=== PATIENT | male | born 1985 | race Caucasian/White ===

== ENCOUNTER → 2018-08-13 14:19 | Outpatient (CLI) | payer BC, SELFPAY ==
[2018-08-13 15:52] LABS: Anion Gap 10 (5-15); BUN 16 mg/dL (7-18); BUN/Creat Ratio 15.2 RATIO (10-20); Calcium,Total 9.9 mg/dL (8.5-10.1); Chloride 101 mmol/L (98-107); Cholesterol 224 mg/dL (200); Creatinine, Serum 1.05 mg/dL (0.70-1.30); EST Glomerular Filtration Rate 86 mL/min (>60); Est Glom Filt Rate - Afr Amer 104 mL/min (>60); Glucose 86 mg/dL (74-106); High Density Lipoprotein 52 mg/dL; Potassium 4.1 mmol/L (3.5-5.1); Sodium Level 139 mmol/L (136-145); Triglycerides 106 mg/dL; Very Low Density Lipoprotein 21 mg/dL (5-40)
--- OUTSIDE RECORDS SUMMARY | 2018-10-08 13:52 | XMS RPT_ITS ---
:1985 Author Organization OHIP Care Team Providers Name Role Phone Adair Givens Attending Unavailable Adair Givens Primary Care Unavailable PROBLEMS PROBLEMS DATE TYPE CONDITION / CODE ATTENDING STATUS SOURCE 08/13/2018 Unknown I10 - Essential Adair Givens Active Sim (primary) Community hypertension / Hospital I10(ICD-10) Repository PROCEDURES PROCEDURES No Procedure Records FoundRESULTS RESULTS BASIC METABOLIC Collected: 08/13/2018 Status: F Source: SIM PROFILE (BMP) 2:24 PM [facility] REPOSITORY TYPE CODE TESTS RESULT OUT OF RANGE REFERENCE UNITS LAB L501.0100 74-106 mg/dL Normal GLU 86 Result Comment: Please note revised GLUCOSE reference range effective 2017. LAB L501.1000 7-18 mg/dL Normal BUN 16 LAB L501.1100 0.70-1.30 mg/dL Normal CREAT,SERUM 1.05 Result Comment: The validity of the calculated GFR AND GFRAA in patients over 70 years has not been determined. Clinical correlation is essential. LAB L501.1110 >60 mL/min Normal EST GFR 86 Result Comment: Non- GFR Calc LAB L501.1115 >60 mL/min Normal EST GFR - AA 104 Result Comment: GFR Calc LAB L501.1300 10-20 RATIO Normal BUN/CRE 15.2 LAB L501.2200 8.5-10.1 mg/dL CA Normal 9.9 LAB L501.5300 136-145 mmol/L NA Normal 139 LAB L501.5600 3.5-5.1 mmol/L K Normal 4.1 LAB L501.5900 98-107 mmol/L CL Normal 101 LAB L501.6100 21.0-32.0 mmol/L Normal CO2 28.0 LAB L501.6200 5-15 Normal GAP 10 Performed By: #### L500.2500, L500.4100 #### [facility] [address] [place], [address] LIPID PROFILE Collected: 08/13/2018 Status: F Source: [place] 2:24 PM [facility] REPOSITORY TYPE CODE TESTS RESULT OUT OF RANGE REFERENCE UNITS LAB L501.4900 200 mg/dL High CHOL 224 Result Comment: <200 mg/dL Desirable 200-240 mg/dL Borderline >240 mg/dL High Risk LAB L501.5000 mg/dL Normal TRIG 106 Result Comment: The drugs N-Acetylcysteine and Metamizole may falsely depress this assay. Serum Triglycerides Reference Interval Normal <150 mg/dL Borderline high 150 - 199 mg/dL High 200 - 499 mg/dL Very High > or = 500 mg/dL LAB L501.6400 mg/dL Normal HDL 52 Result Comment: The drugs N-Acetylcysteine and Metamizole may falsely depress this assay. Reference Range HDL <40 mg/dL Low HDL Cholesterol HDL >or= 60 mg/dL High HDL Cholesterol LAB L501.6500 0-130 mg/dL High LDL 151 LAB L501.6600 5-40 mg/dL Normal VLDL 21 Performed By: #### L500.2500, L500.4100 #### [facility] [address] [place], [address] ALLERGIES ALLERGIES DATE TYPE / CODE NAME / CODE REACTION SEVERITY SOURCE 12/30/2013 Drug No Known Unknown [facility] Allergy/4160 Allergies/F00 [facility] [address]120(SNOMED [id number](RXNOR Repository CT) M) ENCOUNTERS ENCOUNTERS ADMIT/DISCHARGE ACCOUNT ADMITTING ENCOUNTER LOCATION SOURCE NUMBER CLASS 08/13/2018 [id number] Ambulatory [address] ing:MFPLAB Repository PAYERS PAYERS ENCOUNTER GUARANTOR PAYER SUBSCRIBER SOURCE 08/13/2018 VIRGINIAIRINA VALENZUELA Primary [place]IR[place] VALENZUELA [place] [id number] Insurance:ANTHEMPolic PAINTERDOB: Community [address] [place]: [id number] [id number] Repository [id number]: 330) Date:6526-08-75[phone] () [id number] [id number]: 08/13/2018 Secondary NOT GIVENUNK Sim Insurance:SELF PAY [facility]: Effective Repository Date:2018-08-13
== END ==
PROVIDERS: Family Provider Family Medicine; PCP Family Medicine; Visit Provider Family Medicine
DX: I10 Essential (primary) hypertension (principal)
CPT/HCPCS: 36415; 80048; 80061

== ENCOUNTER → 2019-02-18 16:02 | Outpatient (CLI) | payer BC, SELFPAY ==
[2013-12-30 10:23] VITALS: BMI 23.0
[2019-02-18 17:48] LABS: ALB/GLOB Ratio 1.3 RATIO (0.9-2.4); AST(SGOT) 26 U/L (15-37); Alanine Aminotransfer ALT/SGPT 85 U/L (16-61); Albumin, Serum 4.3 g/dL (3.2-5.0); Alkaline Phosphatase 78 U/L (45-117); Anion Gap 11 (5-15); BUN 13 mg/dL (7-18); BUN/Creat Ratio 14.7 RATIO (10-20); Calcium,Total 9.9 mg/dL (8.5-10.1); Chloride 102 mmol/L (98-107); Cholesterol 179 mg/dL (200); Creatinine, Serum 0.89 mg/dL (0.70-1.30); EST Glomerular Filtration Rate 104 mL/min (>60); Est Glom Filt Rate - Afr Amer 126 mL/min (>60); Globulin 3.4 g/dL (2.2-4.2); Glucose 74 mg/dL (74-106); High Density Lipoprotein 46 mg/dL; Potassium 4.1 mmol/L (3.5-5.1); Protein, Total 7.7 g/dL (6.4-8.2); Sodium Level 141 mmol/L (136-145); Triglycerides 117 mg/dL; Very Low Density Lipoprotein 23 mg/dL (5-40)
== END ==
PROVIDERS: Family Provider Family Medicine; PCP Family Medicine; Referring Provider Family Medicine; Visit Provider Family Medicine
DX: I10 Essential (primary) hypertension (principal)
CPT/HCPCS: 36415; 80053; 80061

== ENCOUNTER → 2019-08-15 09:03 | Outpatient (CLI) | payer BC, SELFPAY ==
[2013-12-30 10:23] VITALS: BMI 23.0
[2019-08-15 10:19] LABS: Anion Gap 5 (5-15); BUN 18 mg/dL (7-18); BUN/Creat Ratio 19.7 RATIO (10-20); Calcium,Total 9.5 mg/dL (8.5-10.1); Chloride 105 mmol/L (98-107); Creatinine, Serum 0.91 mg/dL (0.70-1.30); EST Glomerular Filtration Rate 100 mL/min (>60); Est Glom Filt Rate - Afr Amer 121 mL/min (>60); Glucose 92 mg/dL (74-106); Potassium 4.1 mmol/L (3.5-5.1); Sodium Level 139 mmol/L (136-145)
== END ==
PROVIDERS: Family Provider Family Medicine; PCP Family Medicine; Referring Provider Family Medicine; Visit Provider Family Medicine
DX: I10 Essential (primary) hypertension (principal)
CPT/HCPCS: 36415; 80048

== ENCOUNTER → 2021-05-30 10:04 | Outpatient (CLI) | payer OTHER, SELFPAY ==
[2021-05-30 12:48] LABS: Cholesterol 137 mg/dL (200); High Density Lipoprotein 49 mg/dL; Thyroid Stim Hormone (TSH) 0.72 uIU/mL (0.358-3.74); Triglycerides 53 mg/dL; Very Low Density Lipoprotein 11 mg/dL (5-40)
[2021-05-31 13:59] LABS: Anion Gap 5 (5-15); BUN 27 mg/dL (7-18); BUN/Creat Ratio 29.7 RATIO (10-20); Calcium,Total 9.4 mg/dL (8.5-10.1); Chloride 105 mmol/L (98-107); Creatinine, Serum 0.91 mg/dL (0.70-1.30); EST Glomerular Filtration Rate 100 mL/min (>60); Est Glom Filt Rate - Afr Amer 121 mL/min (>60); Glucose 88 mg/dL (74-106); Potassium 4.6 mmol/L (3.5-5.1); Sodium Level 139 mmol/L (136-145)
== END ==
PROVIDERS: PCP Family Medicine; Referring Provider Family Medicine; Visit Provider Family Medicine
DX: Z00.00 Encounter for general adult medical examination without abnormal findings (principal)
CPT/HCPCS: 36415; 80048; 80061; 84403; 84443

== ENCOUNTER → 2023-03-09 | Outpatient (CLI) | payer BC, SELFPAY ==
[2023-03-09 18:47] LABS: Anion Gap 8 (5-15); BUN 14 mg/dL (7-18); BUN/Creat Ratio 15.4 RATIO (10-20); Calcium,Total 9.7 mg/dL (8.5-10.1); Chloride 102 mmol/L (98-107); Cholesterol 194 mg/dL (200); Creatinine, Serum 0.91 mg/dL (0.70-1.30); EST Glomerular Filtration Rate 99 mL/min (>60); Est Glom Filt Rate - Afr Amer 119 mL/min (>60); Glucose 84 mg/dL (74-106); High Density Lipoprotein 52 mg/dL; Sodium Level 137 mmol/L (136-145); Thyroid Stim Hormone (TSH) 1.13 uIU/mL (0.358-3.74); Triglycerides 164 mg/dL; Very Low Density Lipoprotein 33 mg/dL (5-40)
== END | disposition home or self-care (01) ==
PROVIDERS: PCP Family Medicine; Visit Provider Family Medicine
DX: Z00.00 Encounter for general adult medical examination without abnormal findings (principal)
CPT/HCPCS: 36415; 80048; 80061; 84403; 84443

== ENCOUNTER → 2023-08-13 | Outpatient (CLI) | payer BC, SELFPAY ==
--- NOTE | 2023-08-13 11:10 | RAD_ITS ---
STUDY: X-RAY - LUMBAR SPINE REASON FOR EXAM: Male, 38 years old. BACK PAIN TECHNIQUE: 4 view(s) of the lumbar spine were obtained. COMPARISON: None FINDINGS: Normal lumbar lordosis. There is no substantial scoliosis. There is a normal alignment of the vertebrae. Normal vertebral bodies and endplates. Normal disc space heights. The soft tissue structures are unremarkable. RAD/L/S Spine Min 4 Views IMPRESSION: Normal x-ray examination of the lumbar spine. Electronically Signed: Sanchez Matamoros MD at 19:27 EST ,
== END | disposition home or self-care (01) ==
PROVIDERS: PCP Family Medicine; Referring Provider Family Medicine; Visit Provider Family Medicine
DX: E29.1 Testicular hypofunction (principal); M54.9 Dorsalgia, unspecified
CPT/HCPCS: 36415; 72110; 84403

== ENCOUNTER 2023-11-26 20:23 | Emergency (ER) | payer BC, SELFPAY ==
[2023-11-26 20:24] VITALS: BP 137/74; PULSE 94; RESP 18; TEMP 37.4; O2SAT 96; BMI 20.2
--- NOTE | 2023-11-26 20:29 | EX.ED.DYSGE1 ---
HPI History of Present Illness Chief Complaint: General Illness [facility] Medical History (Updated 11/26/23 @ 21:[address] Castillo Fenton, ) Anxiety Hypertension Home Medications No Known/Unobtainable [No Known Home Medications] 12/30/13 [History Last Taken Unknown] ondansetron 4 mg disintegrating tablet 4 mg PO Q8H PRN PRN Nausea #10 tabs 11/26/23 [Rx Last Taken Unknown] Allergy/AdvReac Type Severity Reaction Status Date / Time No Known Allergies Allergy Verified 11/26/23 20:24 Social History Smoking Status: Never smoker EXAM Physical Exam Const Vital Signs: 11/26/23 20:24 11/26/23 20:52 11/26/23 21:46 Temperature 99.4 F H 99.3 F H Temperature Source Temporal Oral Pulse Rate 94 86 Respiratory Rate 18 18 15 Blood Pressure 137/74 H 119/78 114/60 Blood Pressure Mean 95 91 78 Pulse Ox 96 Oxygen Delivery Method Room Air MDM MDM MDM Narrative Medical decision making narrative: HISTORY OF PRESENT ILLNESS: 38-year-old male presents with concerns for flu A. States he has been having nausea, body aches, nausea and cough. States he was given Tamiflu by his primary doctor after he started vomiting. Denies any chest pain or shortness of breath. REVIEW OF SYSTEMS: Pertinent positives: Body aches, nausea, Pertinent negatives: Chest pain, shortness breath, leg swelling PHYSICAL EXAM: Nursing triage notes reviewed, Vital signs reviewed Constitutional: please see mdm HENT: MMM Eyes: Pupils equal round and reactive to light, Extraocular muscles intact Neck: No stridor, no JVD, full neck ROM Lungs: Clear to auscultation, No wheezing or rales. No increased work of breathing, no conversational dyspnea, no accessory muscle use, no nasal flaring. No respiratory distress noted Heart: Regular rate and rhythm, No murmurs, No rubs and No gallops, 2+ distal pulses (radial, femoral, posterior tibial) in all extremities Abdomen: Soft, there is no tenderness, rigidity, rebound or guarding, no obvious peritoneal signs, no palpable pulsatile abdominal masses, no auscultated abdominal bruit : No CVAT Extremities: No edema Neuro: No focal neurological deficits, cranial nerves II through XII intact, 5/5 strength in all extremities. Intact sensation to light touch in all extremities, 2+ reflexes bilateral patella tendons. Normal gait. No ataxia. Skin: No rash or lesions noted MEDICAL DECISION MAKING: Chief Complaint: Influenza A External records reviewed: No recent advanced imaging of the chest History obtained from others: Patient's MDM Narrative: Patient was hemodynamically stable, afebrile and nontoxic-appearing. Heart and lungs were clear. Patient not hypoxic. He was borderline febrile. He was given symptomatic treatment with IV fluids, Zofran and Toradol. He was able to tolerate p.o. he is appropriate discharge home with strict return precaution follow-up instructions. The patient and/or family, caregivers express understanding. The patient and/or family, caregivers agrees with the plan. Shared decision making: I will have a discussion with the patient and or visitors regarding risk/benefits of further testing or admission. They will be made aware of of the risk/benefits inherent in this decision they will be given the opportunity to voice understanding. Total critical care time today provided was at least 0 minutes. This excludes separately billable procedures. Critical care time (if documented) is secondary to the patient having high probability of clinically significant/life threatening deterioration in the patient's condition which required my urgent intervention. Impression: 1. Influenza A Dispo: Discharge home This note was generated with [employer] dictation software. It may contain incorrect words, spelling, and punctuation that were not noted in review of the chart prior to signing. Discharge Plan Triage Chief Complaint: General Illness ED Provider: Castillo Fenton Dx/Rx/DC Orders Clinical Impression: Influenza A Prescriptions: New ondansetron 4 mg tablet,disintegrating 4 mg PO Q8H PRN PRN (Reason: Nausea) Qty: 10 0RF No Action No Known Home Medications Primary Care Provider: Adair Givens Referrals: Adair Givens MD [Primary Care Provider] - Activity Restrictions/Additional Instructions: Thank you for trusting us with your care today! Please take Tylenol (2 pills, 650 mg), ibuprofen (2 pills, 400 mg) every 6 hours as needed for pain and fever control. Please take Zofran as needed for nausea or vomiting. Please discontinue taking Tamiflu if it causes significant nausea and vomiting. Please return to the emergency department if your symptoms change or worsen. Please follow with your primary care physician for further outpatient evaluation and management. Disposition Disposition: Home, Self Care
[2023-11-26 20:52] VITALS: BP 119/78; RESP 18
[2023-11-26] MEDS: 0.9% Normal Saline (1000mL) 1,000 ML 1000 ML IV (21:11)
[2023-11-26] MEDS: Ketorolac 15 MG/ML Vial IV (21:11)
[2023-11-26] MEDS: Ondansetron 4 MG/2 ML Vial IV (21:11)
[2023-11-26] MEDS: Acetaminophen 325 MG Tablet 650 MG PO (21:44)
[2023-11-26 21:46] VITALS: BP 114/60; PULSE 86; RESP 15; TEMP 37.4
[2023-11-26 22:33] VITALS: BP 104/65; PULSE 77; RESP 17; TEMP 37.2; O2SAT 98
== END 2023-11-26 22:35 | disposition home or self-care (01) ==
PROVIDERS: Emergency Provider Emergency Medicine; PCP Family Medicine; Visit Provider Emergency Medicine
DX: J10.1 Influenza due to other identified influenza virus with other respiratory manifestations (principal)
CPT/HCPCS: 96361; 96374; 96375; 99283; J7030; A4216; J2405

== ENCOUNTER → 2023-11-26 | Outpatient (CLI) | payer BC, SELFPAY ==
[2023-11-26 17:44] LABS: Absolute Lymphocyte Count 0.52 X10^3/uL (0.83-4.51); Absolute Neutrophil Count 5.6 X10^3/uL (2.0-7.7); Basophil# 0.02 X10^3/uL; Basophil% 0.3 % (0-1); Eosinophil# 0.01 X10^3/uL; Eosinophils% 0.1 % (0-5); Hemoglobin 14.7 g/dL (13.0-16.5); Lymphocyte # 0.52 X10^3/ul (0.83-4.51); Lymphocyte % 7.7 % (19-41); Mean Corp Hgb Conc 32.7 g/dL (32-36); Mean Corpuscular Hgb 28.9 pg (27.0-32.0); Mean Corpuscular Volume 88.4 fL (80-94); Mean Platelet Vol. 10.2 fl (6.2-12.0); Monocyte# 0.58 X10^3/uL; Monocyte% 8.6 % (0-10); NRBC Flagged by Analyzer 0 % (0-5); Neutrophil # 5.61 X10^3/uL (2.7-7.7); Neutrophil % 82.9 % (47-70); POSITIVE DIFFERENTIAL YES; Platelet Count 281 K/mm3 (150-450); RBC Distribution Width CV 13.1 % (11.6-14.6); RBC Distribution Width SD 42.5 fl (35.1-43.9); Red Blood Count 5.09 M/mm3 (4.6-6.2); White Blood Count 6.8 K/mm3 (4.4-11.0)
[2023-11-26 18:16] LABS: Anion Gap 6 (5-15); BUN 11 mg/dL (7-18); BUN/Creat Ratio 12.1 RATIO (10-20); Calcium,Total 9.4 mg/dL (8.5-10.1); Chloride 104 mmol/L (98-107); Creatinine, Serum 0.91 mg/dL (0.70-1.30); EST Glomerular Filtration Rate 98 mL/min (>60); Est Glom Filt Rate - Afr Amer 119 mL/min (>60); Glucose 92 mg/dL (74-106); Potassium 4.2 mmol/L (3.5-5.1); Sodium Level 138 mmol/L (136-145)
== END | disposition home or self-care (01) ==
LOC: MFPLAB 16:37
PROVIDERS: PCP Family Medicine; Visit Provider Family Medicine
DX: R42 Dizziness and giddiness (principal)
CPT/HCPCS: 36415; 80048; 85025

== ENCOUNTER 2024-02-13 02:51 | Emergency (ER) | payer BC, SELFPAY ==
[2024-02-13 02:52] VITALS: BP 134/92; PULSE 100; RESP 16; TEMP 36.2; O2SAT 98; BMI 22.6
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
[2024-02-13] MEDS: morphine 10 MG/ML Syringe IM (03:47)
[2024-02-13 04:48] VITALS: RESP 16; TEMP 37; O2SAT 98
== END 2024-02-13 04:51 | disposition home or self-care (01) ==
LOC: ED 04:15
PROVIDERS: Emergency Provider Emergency Medicine; PCP Family Medicine; Visit Provider Emergency Medicine
DX: S42.022A Displaced fracture of shaft of left clavicle, initial encounter for closed fracture (principal); V29.888A Rider (driver) (passenger) of other motorcycle injured in other specified transport accidents, initial encounter; Y93.55 Activity, bike riding; Y99.8 Other external cause status; Y92.89 Other specified places as the place of occurrence of the external cause; I10 Essential (primary) hypertension; F17.220 Nicotine dependence, chewing tobacco, uncomplicated; Z79.899 Other long term (current) drug therapy
CPT/HCPCS: 73000; 73030; 96372; 99283

== ENCOUNTER 2024-02-25 05:45 | Day surgery (SDC) | payer BC, SELFPAY ==
[2024-02-25] VITALS (9 sets, daily range): BP systolic 131–147; BP diastolic 67–99; PULSE 69–78; RESP 16; TEMP 36.2–36.8; O2SAT 96–100; BMI 20.9
[2024-02-25] MEDS: Lactated Ringers 1,000 ML 15 ML IV (06:15)
[2024-02-25] MEDS: Cefazolin 2 GM in 0.9% Normal Saline (100mL Bag) 100 ML IV (07:35)
--- NOTE | 2024-02-25 07:46 | PCM.PRE.AN2 ---
ASA Classification* ASA Classification ASA Classification: 2 Assessment & Plan Anesthesia* Anesthesia Assessment Anesthesia Assessment: Discussed sedation and/or anesthesia options, risks, benefits, and alternatives with patient/parents/legal guardian/POA. Questions invited. The patient/parents/legal guardian/POA seems to understand and agrees to proceed with anesthesia plan. Reviewed the physical assessment, medical history, allergy history and patient home medications list prior to surgery/procedure/anesthetic and documented any changes. Performed airway and anesthesia risk assessments. Anesthesia Type Anesthesia Type: General Pre-Assessment Diagnosis/Proposed Procedure Planned Operative Procedure(s): ORIF LEFT CLAVICLE FX Anesthesia History Anesthesia History - inflatable buildings laminator: Anesthesia History - inflatable buildings laminator Hx Hospitalization No 02/19/24 08:09 Any Problems With Anesthesia No 02/19/24 08:09 Cholinesterase deficiency No 02/19/24 08:09 You/Your Family Experience No 02/19/24 08:09 fever (hyperthermia) with Relationship Recent Exposure to Contagious No 02/25/24 06:29 Disease Does patient have nerve No 02/19/24 08:09 stimulator Patient instructed to have device shut off --Does patient have Pacemaker No 02/25/24 06:29 or ICD? When Was Last Pacemaker Check QUESTION #4 FULL TEXT: You/Your Family Experience fever (hyperthermia) with Anesthesia Last Oral Intake Last Oral intake: Last Oral Intake NPO since 19:45 02/25/24 06:29 Meds taken in AM with sips of No 02/25/24 06:29 water? Meds patient instructed to take am of surgery PONV PONV - inflatable buildings laminator: PONV - inflatable buildings laminator Female No 02/19/24 08:09 HX of Motion Sickness No 02/19/24 08:09 HX of N/V After Surgery No 02/19/24 08:09 Non-Smoker No 02/19/24 08:09 Duration of Surgery greater Yes 02/19/24 08:09 than 60 minutes Number of Risk Factors 1 02/19/24 08:09 PONV Score Low Risk 02/19/24 08:09 Height & Weight Height & Weight: Anesthesia: Height & Weight Height 5 ft 11 in 02/25/24 06:29 Weight: 68 kg 02/25/24 06:29 Body Mass Index (BMI) 20.9 02/25/24 06:29 Respiratory Assessment Respiratory Assessment - inflatable buildings laminator: Respiratory Tract Infection Hx - inflatable buildings laminator Hx Respiratory Tract Infection No 02/19/24 08:09 STOP Sleep Apnea STOP Sleep Apnea - inflatable buildings laminator: STOP Sleep Apnea - inflatable buildings laminator Hx Hypertension Yes: CONTROLLED WITH MED 02/19/24 08:09 Hx Sleep Apnea No 02/19/24 08:09 CPAP BIPAP Do you snore loudly (louder Yes 02/19/24 08:09 than talking or can be heard Do you often feel tired/ No 02/19/24 08:09 fatigued/ sleepy during daytime? Has anyone observed you stop No 02/19/24 08:09 breathing during sleep? STOP Results Positive 02/19/24 08:09 QUESTION #5 FULL TEXT : Do you snore loudly (louder than talking or can be heard through closed doors)? Tobacco Use History Tobacco Use History - inflatable buildings laminator: Tobacco Use History - inflatable buildings laminator Tobacco Use Smoking Status Current every day smoker 02/19/24 08:09 Hx Tobacco Use Yes 02/19/24 08:09 Years Smoking Packs Smoked per Day Smoking Cessation Date was within the last 15 years Hx Smoking Cessation Date Hx Smoking Cessation Yes 02/19/24 08:09 Counseling Hematologic Medial History Hematologic Hx - inflatable buildings laminator: Hematologic Medical Hx - research project coordinator Hx of Blood Transfusion No 02/19/24 08:09 Hx of Transfusion in last 3 No 02/19/24 08:09 Months Date of Last Transfusion (if within last 3 months) Ever experience any problems No 02/19/24 08:09 with transfusion(s)? Specify any problems Hx of Preganancy in last 3 N/A 02/19/24 08:09 Months Nurse Filling Out Transfusion DSCHRIBER 02/19/24 08:09 & Questions: Date: 02/19/24 02/19/24 08:09 Time: 08:10 02/19/24 08:09 Patient unable to answer at this time (ie. confused, unrespo /Reproduction History /Reproductive History - inflatable buildings laminator: /Reproductive Hx- inflatable buildings laminator Hx Now No 02/19/24 08:09 Gestational Age (in weeks): EDC: Hx Hx Para Hx Section SAB No 02/19/24 08:09 Active Medications Active Medications: Current Medications Generic Name Dose Route Start Last Admin Trade Name Freq PRN Reason Stop Dose Admin Cefazolin Sodium 2 gm/ Sodium 110 mls @ 150 mls/hr 02/25/24 07:30 Chloride IV 02/25/24 08:13 PREOP ONE Lactated Ringer's 1,000 mls @ 15 mls/hr 02/25/24 06:15 02/25/24 06:15 IV 15 mls/hr .Q48H SUSAN Administration Anesthesia Focused Assessment* Temperature: 98.2 F Pulse Rate: 73 Blood Pressure: 131/67 Respiratory Rate: 16 Pulse Ox: 100 Airway Assessment Mouth opens (cm): 3 Mallampati Score: II Focused Labs Anesthesia Preop lab: CBC WBC 6.8 K/mm3 (4.4-11.0) 11/26/23 16:37 RBC 5.09 M/mm3 (4.6-6.2) 11/26/23 16:37 Hgb 14.7 g/dL (13.0-16.5) 11/26/23 16:37 Hct 45.0 % (40-54) 11/26/23 16:37 Plt Count 281 K/mm3 (150-450) 11/26/23 16:37 CHEMISTRY Potassium 4.2 mmol/L (3.5-5.1) 11/26/23 16:37 Sodium 138 mmol/L (136-145) 11/26/23 16:37 BUN 11 mg/dL (7-18) 11/26/23 16:37 Creatinine 0.91 mg/dL (0.70-1.30) 11/26/23 16:37 Glucose 92 mg/dL (74-106) 11/26/23 16:37 TSH 1.13 uIU/mL (0.358-3.74) 03/09/23 14:34 COAG Review of Systems (Anesthesia) ROS Narrative System reviewed and no additional complaints, except as documented. [facility] Medical History Wears glasses Marijuana use Alcohol use Back pain Syncope Chewing tobacco dependence History of hand fracture Hypertension Anxiety Home Medications ?Medication ?Instructions ?Recorded ?Last Taken ?Type lisinopril 10 1 tab PO QHS 02/13/24 02/24/24 18:45 History mg-hydrochlorothiazide 12.5 mg tablet oxycodone-acetaminophen 5 mg-325 1 tab PO Q6H PRN pain 3 days #12 02/13/24 02/24/24 19:45 Rx mg tablet (Percocet) tabs sertraline 50 mg tablet 50 mg PO QHS 02/13/24 02/24/24 18:45 History Allergy/AdvReac Type Severity Reaction Status Date / Time No Known Allergies Allergy Verified 02/25/24 06:27 Surgical History Hx of tonsillectomy History of hand surgery Social History Smoking Status: Current every day smoker tobacco type: smokeless tobacco
[2024-02-25] MEDS: Lidocaine 1% /Epi 1:100 (50ml) 50 ML VIAL (08:07)
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
--- NOTE | 2024-02-25 09:38 | PCM.POST.ANE ---
Anesthesia: Postop Eval I Current Vital Signs Temperature: 97.3 F Pulse Rate: 77 Blood Pressure: 146/83 Respiratory Rate: 16 Pulse Ox: 96 Oxygen Delivery Method: Room Air Assessment Airway patent: Yes Spontaneous unlabored respirations: Yes Mental status: Awake and Calm nausea: No Vomiting: No Anesthesia Complication: No Fluid Hydration Crystalloid volume administer (ml): 1,100 Total IV fluid infused: 1,100 Progress Note Post-operative progress note: Patent airway, no complaints of discomofrot, transported to PACU. Anesthesia document: Postop Eval 1 completed: Yes
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
[2024-02-25] MEDS: Ketorolac 30 MG/ML Syringe IV (09:59)
--- NOTE | 2024-02-25 10:38 | POSTOPAN2_ITS ---
Anesthesia Postop Eval I Sum Postop Eval Completion status Anesthesia document: Postop Eval 1 completed: Yes Anesthesia Postop Eval I Summary Anesthesia Postop Eval I Summary: Anesthesia Postop Eval I: Assessment Summary Airway patent Yes 02/25/24 09:45 [email or web address] Spontaneous unlabored Yes 02/25/24 09:45 [email or web address] respirations Mental status Awake,Calm 02/25/24 09:45 [email or web address] nausea No 02/25/24 09:45 [email or web address] Vomiting No 02/25/24 09:45 [email or web address] Anesthesia Postop Eval I: Fluid Summary Crystalloid volume administer 1,100 02/25/24 09:45 [email or web address] (ml) Colloids volume administered ( ml) Blood Product volume administered (ml) Total IV fluid infused 1,100 02/25/24 09:45 [email or web address] Anesthesia Postop Eval I: Summary Notes Anesthesia Complication No 02/25/24 09:45 [email or web address] Anesthesia Complication Comment: Post-operative progress note Patent airway, no 02/25/24 09:45 [email or web address] complaints of discomofrot, transported to PACU. Anesthesia: Postop Eval II Evaluation Mental status: Awake Pain Level: 0 nausea: No Vomiting: No Complications Anesthesia Complication: No
--- NOTE | 2024-02-25 10:38 | PCM.POSTANE2 ---
Anesthesia Postop Eval I Sum Postop Eval Completion status Anesthesia document: Postop Eval 1 completed: Yes Anesthesia Postop Eval I Summary Anesthesia Postop Eval I Summary: Anesthesia Postop Eval I: Assessment Summary Airway patent Yes 02/25/24 09:45 BOAT DIESEL [email or web address] [email or web address] Spontaneous unlabored Yes 02/25/24 09:45 BOAT DIESEL MOTOR [email or web address] respirations Mental status Awake,Calm 02/25/24 09:45 BOAT DIESEL [email or web address] [email or web address] nausea No 02/25/24 09:45 BOAT DIESEL MOTOR [email or web address] Vomiting No 02/25/24 09:45 BOAT DIESEL [email or web address] [email or web address] Anesthesia Postop Eval I: Fluid Summary Crystalloid volume administer 1,100 02/25/24 09:45 BOAT DIESEL [email or web address] [email or web address] (ml) Colloids volume administered ( ml) Blood Product volume administered (ml) Total IV fluid infused 1,100 02/25/24 09:45 BOAT DIESEL MOTOR [email or web address] Anesthesia Postop Eval I: Summary Notes Anesthesia Complication No 02/25/24 09:45 BOAT DIESEL MOTOR [email or web address] Anesthesia Complication Comment: Post-operative progress note Patent airway, no 02/25/24 09:45 BOAT DIESEL [email or web address] [email or web address] complaints of discomofrot, transported to PACU. Anesthesia: Postop Eval II Evaluation Mental status: Awake Pain Level: 0 nausea: No Vomiting: No Complications Anesthesia Complication: No
[2024-02-25] MEDS: oxyCODONE 5 MG Tablet 10 MG PO (10:54)
== END 2024-02-25 11:42 | disposition home or self-care (01) ==
LOC: SDC 05:45 → AC 05:46
PROVIDERS: PCP Family Medicine; Referring Provider Student in an Organized Health Care Education/Training Program; Visit Provider Student in an Organized Health Care Education/Training Program
PROC: (CPT 23515; principal; 2024-02-25 07:10)
DX: S42.022A Displaced fracture of shaft of left clavicle, initial encounter for closed fracture (principal); F12.20 Cannabis dependence, uncomplicated; F32.A Depression, unspecified; I10 Essential (primary) hypertension; F17.220 Nicotine dependence, chewing tobacco, uncomplicated; Z79.899 Other long term (current) drug therapy; X58.XXXA Exposure to other specified factors, initial encounter
CPT/HCPCS: 23515; 00450; 73000; 76000; C1713; J7120; J2405